=== PATIENT | female | born 1990 | race Caucasian/White ===

== ENCOUNTER 2021-08-21 21:10 | Emergency (ER) | payer OTHER ==
[2021-08-21 21:29] VITALS: BP 137/86; PULSE 80; TEMP 98; BMI 22.6
[2021-08-21] MEDS ORDERED: DALBAVANCIN HCL 1,500 MG in DEXTROSE 5%-WATER - 500 ML IVPB ONE (21:30)
[2021-08-21] MEDS ORDERED: DALBAVANCIN HCL 500 MG VIAL (RESTRICTED TO ID ONLY) IVPB ONE (21:48)
== END 2021-08-21 22:57 | disposition home or self-care (01) ==
LOC: FER 21:10
PROC: 3E033GC Introduction of Other Therapeutic Substance into Peripheral Vein, Percutaneous Approach (ICD-10-PCS; principal; 2021-08-21)
DX: L08.89 Other specified local infections of the skin and subcutaneous tissue (principal)
CPT/HCPCS: 99284-25; J0875

== ENCOUNTER 2021-09-28 19:27 | Emergency (ER) | payer OTHER ==
[2021-09-28 19:42] VITALS: BP 133/96; PULSE 80; TEMP 99.6; BMI 23.0
[2021-09-28 20:21] LABS: HEMATOCRIT 37.4 % (32.4-45.2); HEMOGLOBIN 13.5 G/dL (10.7-15.3); MCH 31.3 pg (25.7-33.7); MCHC 36.2 g/dl (32.0-36.0); MEAN CELL VOLUME 86.3 fl (80-96); MEAN PLT VOLUME 7.5 fl (7.5-11.1); PLATELET COUNT 173.2 10^3/uL (134-434); RBC 4.33 10^6/uL (3.60-5.2); RDW 13.5 % (11.6-15.6); WHITE BLOOD COUNT 6.3 10^3/uL (4.0-10.8)
[2021-09-28 20:39] LABS: ALBUMIN 4.1 g/dl (3.4-5.0); BILIRUBIN,TOTAL 1.3 mg/dl (0.2-1); CALCIUM 9.1 mg/dl (8.5-10); CREATININE 1.5 mg/dl (0.55-1.3); TOT PROT 8.2 g/dl (6.4-8.2)
[2021-09-28] MEDS ORDERED: SODIUM CHLORIDE 1,000 ML IV ONE (22:07)
[2021-09-28] MEDS ORDERED: CEFTRIAXONE 1,000 MG in DEXTROSE 5%-WATER - 50 ML IVPB ONE (22:08)
[2021-09-28] MEDS ORDERED: cefTRIAXone SODIUM 1 GM VIAL ONE (22:10)
[2021-09-28] MEDS ORDERED: CIPROFLOXACIN 500 MG TABLET (RESTRICTED TO ID) PO ONE (22:59)
[2021-09-28] MEDS ORDERED: CIPROFLOXACIN 250 MG TABLET (RESTRICTED TO ID) PO ONE (23:17)
== END 2021-09-28 23:59 | disposition home or self-care (01) ==
LOC: FER 19:27
PROC: 3E03329 Introduction of Other Anti-infective into Peripheral Vein, Percutaneous Approach (ICD-10-PCS; principal; 2021-09-28)
PROC: 3E0337Z Introduction of Electrolytic and Water Balance Substance into Peripheral Vein, Percutaneous Approach (ICD-10-PCS; 2021-09-28)
DX: S62.102A Fracture of unspecified carpal bone, left wrist, initial encounter for closed fracture (principal)
CPT/HCPCS: 36415; 70486-TC; 70490-TC; 80053; 81003; 81025; 85025; 87040; 87086; 99285-25

== ENCOUNTER 2021-11-24 01:39 | Emergency (ER) | payer OTHER ==
[2021-11-24 01:46] VITALS: BP 136/82; PULSE 72; RESP 16; TEMP 99.2; BMI 23.0
[2021-11-24] MEDS ORDERED: DALBAVANCIN HCL 1,500 MG in DEXTROSE 5%-WATER - 500 ML IVPB ONE (02:40)
[2021-11-24] MEDS ORDERED: SODIUM CHLORIDE 1,000 ML IV STA (02:43)
[2021-11-24] MEDS ORDERED: DALBAVANCIN HCL 500 MG VIAL (RESTRICTED TO ID ONLY) IVPB ONE ×2 (02:45→02:47)
== END 2021-11-24 04:47 | disposition home or self-care (01) ==
LOC: FER 01:39
PROC: 3E03329 Introduction of Other Anti-infective into Peripheral Vein, Percutaneous Approach (ICD-10-PCS; principal; 2021-11-24)
PROC: 3E0337Z Introduction of Electrolytic and Water Balance Substance into Peripheral Vein, Percutaneous Approach (ICD-10-PCS; 2021-11-24)
DX: L03.211 Cellulitis of face (principal)
CPT/HCPCS: 99284-25; J0875

== ENCOUNTER 2022-02-07 04:48 | Day surgery (SDC) | payer OTHER ==
[2022-02-06 15:42] VITALS: BMI 23.0
[2022-02-07 10:09] VITALS: TEMP 984
[2022-02-07 10:39] VITALS: BP 112/69; PULSE 85; RESP 22
== END 2022-02-07 11:00 | disposition home or self-care (01) ==
LOC: JASU-ENDO 04:48
PROVIDERS: ATTEND Internal Medicine Gastroenterology
PROC: 0DB98ZX Excision of Duodenum, Via Natural or Artificial Opening Endoscopic, Diagnostic (ICD-10-PCS; 2022-02-07)
PROC: 0DB78ZX Excision of Stomach, Pylorus, Via Natural or Artificial Opening Endoscopic, Diagnostic (ICD-10-PCS; 2022-02-07)
PROC: 0DJD8ZZ Inspection of Lower Intestinal Tract, Via Natural or Artificial Opening Endoscopic (ICD-10-PCS; principal; 2022-02-07 09:00)
DX: Z12.11 Encounter for screening for malignant neoplasm of colon (principal); K29.50 Unspecified chronic gastritis without bleeding; K31.7 Polyp of stomach and duodenum; D80.1 Nonfamilial hypogammaglobulinemia; K92.1 Melena; K64.8 Other hemorrhoids
CPT/HCPCS: 81025; 88305-TC; 88341-TC; 88342-TC